=== PATIENT | female | born 1970 | race Caucasian/White ===

== ENCOUNTER → 2019-04-04 | Outpatient (CLI) | payer BC ==
--- NOTE | 2019-04-04 13:48 | Diagnostic Imaging Report ---
PROCEDURE: US Non-ob pelvis comp/trans. TECHNIQUE: Multiple Real-time grayscale images were obtained of the pelvis in various projections endovaginally. Transabdominal imaging was also performed. INDICATION: Post menopausal bleeding. FINDINGS: The uterus measures 10.9 x 6.9 x 6.6 cm. There is thickening of the endometrium up to 2.1 cm. There are nabothian cysts. There appears to be a fibroid in the left uterus measuring 3.2 cm. The right ovary is normal in size and morphology demonstrating normal blood flow. The left ovary is not well visualized. There are no other adnexal masses. There is no free pelvic fluid. IMPRESSION: Thickening of the endometrium up to 2.1 cm. This is abnormal in a post menopausal patient. This may reflect endometrial hyperplasia, polyp, or possibly endometrial carcinoma. Recommend clinical correlation. IMPRESSION: 3.2 cm fibroid in the left uterus. Nonvisualization of the left ovary. Dictated by: Dictated on workstation # [id number]
--- NOTE | 2019-04-14 19:58 | Diagnostic Imaging Report ---
INDICATION: Routine screening. Comparison is made with prior mammograms from 03/07/2011 and 03/06/2008. 2-D and 3-D bilateral screening mammography was performed. The current study was also evaluated with a Computer Aided Detection (CAD) system. 3-D tomosynthesis was also performed and reviewed. FINDINGS: Bilateral breast implants are again noted. Implant contours remain smooth. Scattered fibroglandular densities in both breasts are noted. A small lymph node adjacent to the lateral aspect of the right implant posteriorly is seen. No spiculated mass or malignant-appearing microcalcifications are seen. Axillae are unremarkable. IMPRESSION: No mammographic features suspicious for malignancy are identified. ACR BI-RADS Category 2: Benign findings. Result letter will be mailed to the patient. Note: At least 10% of breast cancer is not imaged by mammography. Dictated by: Dictated on workstation # [id number]
== END ==
LOC: RAD 10:42
PROVIDERS: ATTEND Nurse Practitioner Family
DX: Z12.31 Encounter for screening mammogram for malignant neoplasm of breast (principal); N95.0 Postmenopausal bleeding; D25.9 Leiomyoma of uterus, unspecified; R93.89 Abnormal findings on diagnostic imaging of other specified body structures
CPT/HCPCS: 76830; 76856; 77067

== ENCOUNTER 2019-04-13 11:13 | Emergency (ER) | payer BC ==
[~2019-04-13] VITALS: Ht 175.2 cm; Wt 77.2 kg
[2019-04-13] MEDS ORDERED: ASPIRIN 81 MG CHEW (CHILDREN'S ASA) ONE (11:29)
[2019-04-13 11:38] LABS: BASOPHILS % (AUTO) 0 % (0-10); EOSINOPHILS # (AUTO) 0.2 10^3/uL (0.0-0.3); EOSINOPHILS % (AUTO) 2 % (0-10); HEMATOCRIT 41 % (35-52); HEMOGLOBIN 14.1 G/DL (11.5-16.0); LYMPHOCYTES # (AUTO) 2.1 X 10^3 (1.0-4.0); LYMPHOCYTES % (AUTO) 26 % (12-44); MEAN CORPUSCULAR HEMOGLOBIN 28 PG (25-34); MEAN CORPUSCULAR HGB CONC 35 G/DL (32-36); MEAN CORPUSCULAR VOLUME 80 FL (80-99); MEAN PLATELET VOLUME 10.2 FL (7.4-10.4); MONOCYTES # (AUTO) 0.5 X 10^3 (0.0-1.0); MONOCYTES % (AUTO) 6 % (0-12); NEUTROPHILS # (AUTO) 5.5 X 10^3 (1.8-7.8); NEUTROPHILS % (AUTO) 67 % (42-75); PLATELET COUNT 222 10^3/uL (130-400); RED CELL DISTRIBUTION WIDTH 14.7 % (10.0-14.5); WHITE BLOOD COUNT 8.2 10^3/uL (4.3-11.0)
--- NOTE | 2019-04-13 11:42 | ED Chest Pain ---
General Chief Complaint: Chest Pain Stated Complaint: CHEST PAIN History of Present Illness Date Seen by Provider: Apr 13, 2019 Time Seen by Provider: 11:25 Initial Comments 48-year-old female presents for left chest wall pain. She has mild r adiation to the left shoulder. She reports her pain started approximately one week ago after a mammogram. She is underwent multiple tests for endometrial changes. She is awaiting the results. She does report some anxiety related to this. Been taking ibuprofen for the chest wall pain with no improvement in her symptoms. She did take aspirin 2 days ago but none today. She has no nausea or diaphoresis today, no family history of CAD. She reports her pain has been consistent for the last week, and no change in it today. She is Type II Diabetic, takes Metformin. Timing/Duration: 5-6 days Severity/Quality: mild Location: central Radiation: shoulders Activities at Onset: emotional stress Prior CP/Workup: no prior chest pain ASA po PLANNING COORDINATOR: No NTG SL PLANNING COORDINATOR: No Associated Symptoms: denies symptoms; No abdominal pain, No back pain, No diaphoresis, No dizziness, No edema, No fatigue, No fever/chills, No headache, No heartburn, No nausea/vomiting, No rash, No shortness of breath, No swelling/lump in chest, No syncope, No weakness Allergies and Home Medications Allergies Coded Allergies: No Known Drug Allergies (Unverified , 04/13/19) Patient Home Medication List Home Medication List Reviewed: Yes Review of Systems Review of Systems Constitutional: no symptoms reported, see HPI Cardiovascular: See HPI, Chest Pain; Denies Palpitations, Denies Syncope Psychiatric/Neurological: See HPI, Anxiety (related to recent medical procedures and awaiting results.) All Other Systems Reviewed Negative Unless Noted: Yes Past Vbuywyt-Twmoyh-Ssyeao Hx Past Med/Social Hx: Reviewed Nursing Past Med/Soc Hx, Reviewed and Corrections made Patient Social History Recent Foreign Travel: No Contact w/Someone Who Travel: No Physical Exam Vital Signs Vital Signs - First Documented 04/13/19 11:13 Temp 36.8 Pulse 102 Resp 9 B/P (MAP) 161/99 (119) Pulse Ox 100 O2 Delivery Room Air Capillary Refill : Height, Weight, BMI Height: '" Weight: lbs. oz. kg; BMI Method: General Appearance: No Apparent Distress, WD/WN HEENT: PERRL/EOMI, TMs Normal, Normal ENT Inspection, Pharynx Normal Neck: Full Range of Motion, Normal Inspection, Non Tender Respiratory: Lungs Clear, Normal Breath Sounds, Other (tenderness to palpation left chest wall 12-3:00. No erythema, inflammation, masses, induration or fluctuance. No left axillary lymphadenopathy.) Cardiovascular: Regular Rate, Rhythm, No Edema, No Murmur, Normal Peripheral Pulses Gastrointestinal: Normal Bowel Sounds, Non Tender, Soft Extremity: Normal Inspection, Normal Range of Motion, No Pedal Edema, Other (no CVA tenderness) Neurologic/Psychiatric: Alert, Oriented x3, No Motor/Sensory Deficits, Normal Mood/Affect Skin: Normal Color, Warm/Dry Lymphatic: No Adenopathy Progress/Results/Core Measures Results/Orders Lab Results Laboratory Tests Test 04/13/19 11:25 04/13/19 11:45 Range/Units White Blood Count 8.2 4.3-11.0 10^3/uL Red Blood Count 5.07 4.35-5.85 10^6/uL Hemoglobin 14.1 11.5-16.0 G/DL Hematocrit 41 35-52 % Mean Corpuscular Volume 80 80-99 FL Mean Corpuscular Hemoglobin 28 25-34 PG Mean Corpuscular Hemoglobin Concent 35 32-36 G/DL Red Cell Distribution Width 14.7 H 10.0-14.5 % Platelet Count 222 130-400 10^3/uL Mean Platelet Volume 10.2 7.4-10.4 FL Neutrophils (%) (Auto) 67 42-75 % Lymphocytes (%) (Auto) 26 12-44 % Monocytes (%) (Auto) 6 0-12 % Eosinophils (%) (Auto) 2 0-10 % Basophils (%) (Auto) 0 0-10 % Neutrophils # (Auto) 5.5 1.8-7.8 X 10^3 Lymphocytes # (Auto) 2.1 1.0-4.0 X 10^3 Monocytes # (Auto) 0.5 0.0-1.0 X 10^3 Eosinophils # (Auto) 0.2 0.0-0.3 10^3/uL Basophils # (Auto) 0.0 0.0-0.1 10^3/uL Prothrombin Time 13.0 12.2-14.7 SEC INR Comment 1.0 0.8-1.4 Activated Partial Thromboplast Time 29 24-35 SEC Sodium Level 140 135-145 MMOL/L Potassium Level 4.2 3.6-5.0 MMOL/L Chloride Level 104 98-107 MMOL/L Carbon Dioxide Level 25 21-32 MMOL/L Anion Gap 11 5-14 MMOL/L Blood Urea Nitrogen 8 7-18 MG/DL Creatinine 0.75 0.60-1.30 MG/DL Estimat Glomerular Filtration Rate > 60 BUN/Creatinine Ratio 11 Glucose Level 222 H 70-105 MG/DL Calcium Level 9.2 8.5-10.1 MG/DL Corrected Calcium 8.5-10.1 MG/DL Magnesium Level 1.7 1.6-2.4 MG/DL Total Bilirubin 0.6 0.1-1.0 MG/DL Aspartate Amino Transf (AST/SGOT) 14 5-34 U/L Alanine Aminotransferase (ALT/SGPT) 15 0-55 U/L Alkaline Phosphatase 81 40-136 U/L Myoglobin 19.1 10.0-92.0 NG/ML Troponin I < 0.028 <0.028 NG/ML Total Protein 8.1 6.4-8.2 GM/DL Albumin 4.6 H 3.2-4.5 GM/DL Urine Color YELLOW Urine Clarity CLEAR Urine pH 5.5 5-9 Urine Specific [place] 1.020 1.016-1.022 Urine Protein TRACE NEGATIVE Urine Glucose (UA) NEGATIVE NEGATIVE Urine Ketones NEGATIVE NEGATIVE Urine Nitrite NEGATIVE NEGATIVE Urine Bilirubin NEGATIVE NEGATIVE Urine Urobilinogen 0.2 < = 1.0 MG/DL Urine Leukocyte Esterase NEGATIVE NEGATIVE Urine RBC (Auto) NEGATIVE NEGATIVE Urine RBC RARE /HPF Urine WBC RARE /HPF Urine Squamous Epithelial Cells 2-5 /HPF Urine Crystals NONE /LPF Urine Bacteria NEGATIVE /HPF Urine Casts NONE /LPF Urine Mucus SMALL H /LPF Urine Culture Indicated NO My Orders Orders - BRITTANY CASSIDY Cbc With Automated Diff (04/13/19 11:31) Magnesium (04/13/19 11:31) Ekg Tracing (04/13/19 11:31) Comprehensive Metabolic Panel (04/13/19 11:31) Myoglobin Serum (04/13/19 11:31) Protime With Inr (04/13/19 11:31) Partial Thromboplastin Time (04/13/19 11:31) Monitor-Rhythm Ecg Trace Only (04/13/19 11:31) Ed Iv/Invasive Line Start (04/13/19 11:31) Troponin I (04/13/19 11:31) Aspirin Chewable Tablet (Baby Aspirin Ch (04/13/19 11:45) Chest Pa/Lat (2 View) (04/13/19 11:31) Ua Culture If Indicated (04/13/19 11:31) Aspirin Chewable Tablet (Baby Aspirin Ch (04/13/19 11:29) Urine Bedside (04/13/19 11:57) Ketorolac Injection (Toradol Injection) (04/13/19 12:20) Hydroxyzine Cap/Tab (Vistaril) (04/13/19 12:30) Medications Given in ED Current Medications Medications Dose Ordered Sig/Dex Route Start Time Stop Time Status Last Admin Dose Admin Aspirin 324 mg ONCE ONCE PO 04/13/19 11:45 04/13/19 11:46 DC 04/13/19 11:34 324 MG Vital Signs/I&O 04/13/19 04/13/19 11:13 11:13 Temp 36.8 Pulse 102 Resp 9 B/P (MAP) 161/99 (119) Pulse Ox 100 O2 Delivery Room Air Room Air Progress Progress Note : Time: 11:25 Progress Note Patient seen and evaluated, will obtain EKG, chest x-ray, labs and aspirin 324 mg orally. 1200 labs, EKG, and Chest x-ray WNL. Patient denies recent cough. Explained this is likely more soft tissue or musculoskeletal and not cardiac in nature. 1220 will give Toradol 30 mg IV and Vistaril 25 mg by mouth. 1230 discharge instructions and return precautions reviewed with the patient. All questions answered. Initial ECG Impression Date: Apr 13, 2019 Initial ECG Impression Time: 11:18 Initial ECG Rate: 99 Initial ECG Rhythm: Normal Sinus Initial ECG Intervals: Normal Initial ECG Intervals FL 150, QRSD 98, QT 336, QTC 432. Bath P 64, QRS -15, T 525. Initial ECG Impression: Normal Initial ECG Comparisson: No Previous ECG Available Comment Reviewed with Dr. Arreola, agreed with interpretation. Diagnostic Imaging Diagonstic Imaging: Xray Plain Films/CT/US/NM/MRI: chest Comments NAME: LADARIUS KAUR [facility] REC#: [id number] PT STATUS: REG ER : 1970 PHYSICIAN: BRITTANY CASSIDY ADMIT DATE: 04/13/19/ER Draft Date of Exam:04/13/19 CHEST PA/LAT (2 VIEW) INDICATION: Chest pain and nausea. PA and lateral chest obtained at 11:45 a.m. FINDINGS: Heart and mediastinal silhouette are normal in appearance. The lungs are clear. There is no pneumothorax or pleural fluid. IMPRESSION: Negative chest. Dictated on workstation # [id number] Dict: 04/13/19 1202 Trans: 04/13/19 1205 [id number] Interpreted by: ALYSON OLSON MD Electronically signed by: Reviewed: Reviewed by Me Departure Impression Primary Impression: Chest wall pain Disposition: 01 HOME, SELF-CARE Condition: Improved Departure-Patient Inst. Decision time for Depature: 12:30 Referrals: [facility] [place]) Primary Care Physician RENITA VALENCIA APRN (Family) Primary Care Physician Patient Instructions: Chest Pain That Is Not Caused by the Heart (DC) Add. Discharge Instructions: Take Aleve 2 tablets every 12 hours with food, he may take Tylenol 650 mg every 6-8 hours for additional pain. Warm moist compresses to left chest wall tenderness. Follow-up with your primary care provider, for the symptoms and to obtain her test results. Return to the emergency department for new, urgent health care problems. All discharge instructions reviewed with patient and/or family. Voiced understanding. BRITTANY CASSIDY Apr 13, 2019 11:42
[2019-04-13] MEDS ORDERED: ASPIRIN 81 MG CHEW (CHILDREN'S ASA) PO ONE (11:45)
[2019-04-13 11:53] LABS: ALANINE AMINOTRANSFERASE 15 U/L (0-55); ALBUMIN 4.6 GM/DL (3.2-4.5); ALKALINE PHOSPHATASE 81 U/L (40-136); BILIRUBIN,TOTAL 0.6 MG/DL (0.1-1.0); BUN/CREATININE RATIO 11; CALCIUM 9.2 MG/DL (8.5-10.1); CARBON DIOXIDE 25 MMOL/L (21-32); CHLORIDE 104 MMOL/L (98-107); CREATININE SERUM 0.75 MG/DL (0.60-1.30); GFR ESTIMATED > 60; GLUCOSE 222 MG/DL (70-105); MAGNESIUM 1.7 MG/DL (1.6-2.4); POTASSIUM 4.2 MMOL/L (3.6-5.0); SODIUM 140 MMOL/L (135-145); TOTAL PROTEIN 8.1 GM/DL (6.4-8.2)
--- NOTE | 2019-04-13 12:06 | Diagnostic Imaging Report ---
INDICATION: Chest pain and nausea. PA and lateral chest obtained at 11:45 a.m. FINDINGS: Heart and mediastinal silhouette are normal in appearance. The lungs are clear. There is no pneumothorax or pleural fluid. IMPRESSION: Negative chest. Dictated by: Dictated on workstation # [id number]
[2019-04-13 12:09] LABS: BILIRUBIN,URINE NEGATIVE (NEGATIVE); CLARITY,URINE CLEAR; COLOR,URINE YELLOW; GLUCOSE, URINE (UA) NEGATIVE (NEGATIVE); KETONES,URINE NEGATIVE (NEGATIVE); LEUKOCYTE ESTERASE ,URINE NEGATIVE (NEGATIVE); NITRITE,URINE NEGATIVE (NEGATIVE); PH,URINE 5.5 (5-9); PROTEIN,URINE TRACE (NEGATIVE)
[2019-04-13] MEDS ORDERED: KETOROLAC 30 MG/ML VIAL IVP STA (12:20)
[2019-04-13 12:22] LABS: BACTERIA,URINE NEGATIVE /HPF; RBC,URINE RARE /HPF; WBC,URINE RARE /HPF
[2019-04-13] MEDS ORDERED: hydrOXYzine (VISTARIL/ATARAX) 25 MG capsule/tablet PO ONE (12:30)
[2019-04-13 12:35] VITALS: BP 137/82
== END 2019-04-13 12:35 | disposition home or self-care (01) ==
LOC: EDUNIT# 11:13 → ER 11:14
DX: R07.89 Other chest pain (principal); E11.9 Type 2 diabetes mellitus without complications; Z79.84 Long term (current) use of oral hypoglycemic drugs
CPT/HCPCS: 36415; 71046; 80053; 81000; 83735; 83874; 84484; 84703; 85025; 85610; 85730; 93005; 93041; 96374

== ENCOUNTER → 2022-05-29 | Outpatient (CLI) | payer BC, OTHER ==
--- NOTE | 2022-05-29 12:10 | Diagnostic Imaging Report ---
PROCEDURE: Pelvic comp/transvaginal sonogram. TECHNIQUE: Complete transabdominal and transvaginal pelvic ultrasound was performed. In addition, limited pelvic Doppler was performed. INDICATION: Postmenopausal bleeding. Uterus is anteverted measuring 9.1 x 6.0 x 7.9 cm. There appears to be a fibroid in the right uterus measuring 3.6 x 2.2 x 4.4 cm. The endometrium is abnormally thickened measuring up to 19 mm. Endometrium is heterogeneous and contains several cysts, largest 9 mm. There is some increased vascularity to the endometrium as well. Ovaries cannot be visualized due to overlying bowel gas. No adnexal mass or free fluid is detected. IMPRESSION: 1. Uterine fibroid. 2. Abnormally thickened, heterogeneous and hypervascular endometrium. Neoplasm cannot be entirely excluded and tissue sampling is likely indicated. 3. Nonvisualized ovaries. Dictated by: Dictated on workstation # [id number]
== END ==
LOC: RAD 09:26
PROVIDERS: ATTEND Obstetrics & Gynecology
DX: D25.9 Leiomyoma of uterus, unspecified (principal)
CPT/HCPCS: 76830; 76856